=== PATIENT | female | born 1985 ===

== ENCOUNTER 2023-03-26 04:09 | Day surgery (SDC) | payer OTHER ==
[2023-03-13 11:38] VITALS: BMI 29.2
[2023-03-26] MEDS ORDERED: LIDOCAINE HCL 2% (20ML MULTI-DOSE VIAL) ONE (08:18)
[2023-03-26] MEDS ORDERED: PROPOFOL 20 ML ONE (09:03)
[2023-03-26] MEDS ORDERED: MIDAZOLAM HCL 2 MG/2 ML SINGLE DOSE VIAL ONE (09:03)
[2023-03-26] MEDS ORDERED: PROPOFOL 40 ML ONE (09:03)
[2023-03-26] MEDS ORDERED: PROMETHAZINE HCL 25 MG/1 ML VIAL IVPB PRN (09:07)
[2023-03-26] MEDS ORDERED: oxyCODONE HCL 5 MG TABLET PO PRN (09:07)
[2023-03-26] MEDS ORDERED: ONDANSETRON 4 MG/2 ML VIAL IVPUSH PRN (09:07)
[2023-03-26] MEDS ORDERED: ACETAMINOPHEN 1000 MG/100 ML BAG IVPB PRN (09:09)
[2023-03-26] MEDS ORDERED: LACTATED RINGERS SOLUTION 1,000 ML IV SCH (09:15)
[2023-03-26] MEDS ORDERED: BUPIVACAINE HCL/PF 0.5% (5MG/ML) 10 ML VIAL ONE (09:24)
[2023-03-26] MEDS ORDERED: LIDOCAINE HCL 2% (50ML VIAL) NR ONE ×3 (09:28→10:07)
[2023-03-26] MEDS ORDERED: ceFAZolin SODIUM 1 GM VIAL IVPB ONE ×2 (09:28→10:00)
[2023-03-26] MEDS ORDERED: DEXAMETHASONE SOD PHOSPHATE 4 MG/1 ML VIAL IVPUSH ONE ×3 (09:29→10:34)
[2023-03-26] MEDS ORDERED: BUPIVACAINE HCL/PF 0.5% (5MG/ML) 10 ML VIAL IJ ONE ×3 (09:29→10:07)
[2023-03-26] MEDS ORDERED: ONDANSETRON 4 MG/2 ML VIAL ONE (09:54)
[2023-03-26] MEDS ORDERED: ceFAZolin SODIUM 1 GM VIAL ONE (10:00)
[2023-03-26] MEDS ORDERED: KETOROLAC TROMETHAMINE 30 MG/1 ML VIAL ONE (10:46)
[2023-03-26 12:28] VITALS: TEMP 97.1
[2023-03-26 12:53] VITALS: BP 130/80; PULSE 55; RESP 18
== END 2023-03-26 12:10 | disposition home or self-care (01) ==
LOC: JASU-SURG 04:09
PROVIDERS: ATTEND Podiatrist
PROC: 0SRP0JZ Replacement of Right Toe Phalangeal Joint with Synthetic Substitute, Open Approach (ICD-10-PCS; principal; 2023-03-26 10:00)
DX: M20.41 Other hammer toe(s) (acquired), right foot (principal)
CPT/HCPCS: 81025; 88305-TC; 88311-TC